=== PATIENT | female | born 1980 ===

== ENCOUNTER → 2018-10-17 22:41 | Outpatient (ROUT) | payer OTHER, SELFPAY ==
[2018-10-20 13:26] LABS: RPR Screen Nonreactive (Nonreactive)
[2018-10-23 10:25] LABS: Varicella IgG Antibody < 135.00 Index (< 135.00)
== END ==
PROVIDERS: Visit Provider Family Medicine
DX: Z11.3 Encounter for screening for infections with a predominantly sexual mode of transmission (principal)
CPT/HCPCS: 36415; 86480; 86592; 86787; 87591